=== PATIENT | male | born 1970 | race Caucasian/White ===

== ENCOUNTER 2024-07-28 01:25 | Emergency (ER) | payer MEDICAID ==
[~2024-07-28] VITALS: Ht 170.2 cm; Wt 75.0 kg
[2024-07-28 01:45] VITALS: O2SAT 99
[2024-07-28 02:27] VITALS: BP 104/54; PULSE 69; RESP 16; TEMP 37.05852; O2SAT 97
[2024-07-28 02:30] LABS: HEMATOCRIT. 33.7 % (42.0-52.0); HEMOGLOBIN. 11.3 g/dL (14.0-18.0); MEAN CORPUSCULAR HEMOGLOBIN 30.4 pg (28.0-32.0); MEAN CORPUSCULAR HGB CONC 33.4 g/dL (31.0-37.0); MEAN PLATELET VOLUME 8.5 fl (7.4-10.4); PLATELET 255 x1000/uL (130-400); RED BLOOD CELL COUNT 3.71 mill/uL (4.7-6.1); RED CELL DISTRIBUTION WIDTH 14.9 % (11.6-14.6); WHITE BLOOD COUNT 7.3 x1000/uL (4.5-11.0)
[2024-07-28 02:31] LABS: DIFFERENTIAL COMMENT 1
[2024-07-28 02:38] LABS: CHLORIDE 95 mEq/L (98-107); POTASSIUM 4.4 mEq/L (3.5-5.1); SODIUM 133 mEq/L (136-145)
[2024-07-28 02:39] LABS: CARBON DIOXIDE 30 mEq/L (21-32)
[2024-07-28 02:40] LABS: CALCIUM 8.8 mg/dL (8.7-10.4)
[2024-07-28 02:44] LABS: GLUCOSE 324 mg/dL (70-105); UREA NITROGEN BLOOD 30 mg/dL (9-23)
[2024-07-28 05:18] LABS: NUCLEATED RED BLOOD CELLS 1 /100 WBC
[2024-07-28] MEDS ORDERED: GABA300C MT (05:18)
[2024-07-28] MEDS ORDERED: IBUP-2029 MT (05:18)
[2024-07-28 05:21] LABS: PLATELET ESTIMATE NORMAL
== END 2024-07-28 05:41 | disposition home or self-care (01) ==
LOC: ER 01:25
DX: S06.0XAA Concussion with loss of consciousness status unknown, initial encounter (principal); E11.65 Type 2 diabetes mellitus with hyperglycemia; I10 Essential (primary) hypertension; W18.30XA Fall on same level, unspecified, initial encounter; Y93.89 Activity, other specified; Y92.89 Other specified places as the place of occurrence of the external cause; Y99.8 Other external cause status
CPT/HCPCS: 36415; 80048; 85025; 99284